=== PATIENT | female | born 1995 | race Caucasian/White ===

== ENCOUNTER 2018-12-10 09:14 | Inpatient (IN) | payer OTHER ==
[~2018-12-10] VITALS: Ht 167.6 cm; Wt 110.4 kg
[2018-12-10 09:25] VITALS: Ht 167.6 cm; Wt 110.4 kg
[2018-12-10] MEDS ORDERED: CEFAZOLIN 2 GM/50 ML (PMX) 50 ML IVPB SCH (09:30)
[2018-12-10] MEDS ORDERED: MISOPROSTOL 200 MCG TAB PR PRN ×2 (09:30→13:00)
[2018-12-10] MEDS ORDERED: OXYTOCIN 30 UNITS/LR 500 ML IV SCH ×2 (09:30→12:34)
[2018-12-10] MEDS ORDERED: CARBOPROST 250 MCG INJ IM PRN ×2 (09:30→13:00)
[2018-12-10] MEDS ORDERED: METHYLERGONOVINE 0.2 MG INJ IM PRN ×2 (09:30→13:00)
[2018-12-10] MEDS ORDERED: OXYTOCIN 30 UNITS/LR 500 ML IV PRN ×2 (09:30→13:00)
[2018-12-10] MEDS: LACTATED RINGER'S 1,000 ML IV SCH (10:18)
[2018-12-10] MEDS ORDERED: CITRIC ACID/NA CITRATE 30 ML CUP PO ONE (10:30)
--- NOTE | 2018-12-10 10:39 | PREAC ---
Date/Time of Note Date/Time of Note DATE: 12/10/18 TIME: 10:38 Anesthesia Eval and Record Evaluation Time Pre-Procedure Interview DATE: 12/10/18 TIME: 10:38 Age 23 Sex female NPO: 8 hrs Preoperative diagnosis repeat c section Planned procedure c section Past Medical History Past Medical History: Includes GI: Obesity Surgery & Anesthesia Issues No known issue Meds Anticoagulation: No Beta Clair within 24 hr: No Reason Beta Clair not given: Pt. not on B-Clair Current Medications Lactated Ringer's 1,000 ml @ 125 mls/hr Q8H IV Last administered on 12/10/18at 10:18; Admin Dose 125 MLS/HR; Start 12/10/18 at 09:15 Cefazolin Sodium/ Dextrose 50 ml @ 100 mls/hr ONCE IVPB ; Start 12/10/18 at 09:30 Oxytocin/Lactated Ringer's 500 ml @ 125 mls/hr POST IV ; Start 12/10/18 at 09:30 Oxytocin/Lactated Ringer's 500 ml @ 0 mls/hr ONCE PRN IV .VAGINAL BLEEDING; Start 12/10/18 at 09:30 Methylergonovine Maleate (Methergine) 0.2 mg ONCE PRN IM .VAGINAL BLEEDING; Start 12/10/18 at 09:30 Carboprost Tromethamine (Hemabate) 250 mcg ONCE PRN IM .VAGINAL BLEEDING; Start 12/10/18 at 09:30 Misoprostol (Cytotec) 1,000 mcg ONCE PRN [place] .VAGINAL BLEEDING; Start 12/10/18 at 09:30 Meds reviewed: Yes Allergies Coded Allergies: No Known Allergy (Unverified , 12/10/18) Allergies Reviewed: Yes Labs/Studies Labs Reviewed: Reviewed by anesthesiologist Result Diagram: 12/10/18 1000 Laboratory Tests 12/10/18 10:00 test: Positive Studies: ECG (n/a), CXR (n.a) Pre-procedure Exam Airway: Adequate mouth opening Mallampati: Mallampati I Teeth: Normal Lung: Normal Heart: Normal ASA Physical Status ASA physical status: 2 Emergency: None Planned Anesthetic Neuraxial: Spinal Planned Pain Management Sub-arachniod narcotics Pre-operative Attestations Prior to commencing anesthesia and surgery, the patient was re-evaluated, there was verification of: *The patient's identity *The results of appropriate recent lab work and preoperative vital signs *The above evaluation not changing prior to induction *Anesthetic plan, risk benefits, alternative and complications discussed with patient/family; questions answered; patient/family understands, accepts and wishes to proceed. JUAN CARLOS COTA MD Dec 10, 2018 10:39
--- NOTE | 2018-12-10 11:12 | PREOPHP ---
DATE OF ADMISSION: 12/10/2018 HISTORY OF PRESENT ILLNESS: Ms. Rosie Luke is also 23-year-old 2, para 1, EDC 12/13/19 19 intrauterine at 39 weeks and 5 days gestational age, admitted today for elective repeat delivery. She denies any contractions, vaginal bleeding, or discharge. She reports good fe tremaine movement. She had limited care, late entry at approximately 39 weeks' gestational age. PAST MEDICAL HISTORY: None. MEDICATIONS: vitamins. PAST SURGICAL HISTORY: x1 previous section. OBSTETRIC HISTORY: x1 previous section. GYNECOLOGIC HISTORY: Age 10, regular 3 to 4 days. Denies any sexually transmitted infections. Sexu ally active with 1 partner. SOCIAL HISTORY: Denies any smoking, drugs or alcohol. FAMILY HISTORY: None. REVIEW OF SYSTEMS: All within normal except history of present illness. PHYSICAL EXAMINATION: HEENT: Within normal. LUNGS: CTA bilateral. CARDIOVASCULAR: S1, S2, regular rhythm. ABDOMEN: Obese, gravid, no CVA tenderness. EXTREMITIES: Negative edema. No calf tenderness. PELVIC: Vaginal exam deferred. heart tracing category 1. Hettinger: No contractions. ASSESSMENT: Intrauterine at 39 weeks and 5 days gestational age with limited care , previous x1, desires elective repeat delivery, declines vaginal after cesa rean. PLAN: Consent for repeat delivery. Risks, benefits and alternatives explained. All questi ons were answered. Dictated By: NILES SHEARER/LUCITA Conf#: [id number] DID#: [id number]
[2018-12-10] MEDS ORDERED: ONDANSETRON 4 MG INJ ONE (11:24)
[2018-12-10] MEDS ORDERED: METOCLOPRAMIDE 10 MG INJ ONE (11:24)
[2018-12-10] MEDS ORDERED: morphine SULFATE/PF (10 MG/10 ML) INJ ONE (11:24)
[2018-12-10] MEDS ORDERED: KETOROLAC 30 MG INJ ONE (11:24)
[2018-12-10] MEDS ORDERED: EPHEDrine 25 MG/5 ML SYG ONE (11:34)
[2018-12-10] MEDS ORDERED: OXYTOCIN 30 UNITS/LR 500 ML IV ONE (12:22)
--- NOTE | 2018-12-10 12:30 | OPPN ---
Date/Time of Note Date/Time of Note DATE: 12/10/18 TIME: 12:24 Operative Report Planned Procedure Procedure date Dec 10, 2018 Procedure(s) repeat low transverse CD Performed by see signature line Field Agent: MEGHNA ELKINS MD 2nd Field Agent none Anesthesiologist: JUAN CARLOS COTA MD Pre-procedure diagnosis Intrauterine at 39 weeks and 5 days gestational age with limited care, previous x1, desires elective repeat delivery, declines vaginal after [id number] Anesthesia Type: Swvrt5t spinal Post-Procedure Post-procedure diagnosis same Findings a viable female 8/9 weight 3,345 grams. normal uterus tubes ovaries Estimated Blood Loss: 500 - 600 mls Specimen(s) none Grafts/Implant(s) none Complication(s) none NILES SCHWARZ MD Dec 10, 2018 12:30
[2018-12-10] MEDS ORDERED: NACL 0.9% 3 ML SYG IV SCH (13:00)
[2018-12-10] MEDS ORDERED: LANOLIN HPA 1 PKT TOP PRN (13:00)
[2018-12-10] MEDS ORDERED: DIPHENHYDRAMINE 50 MG INJ IV PRN ×2 (13:00)
[2018-12-10] MEDS ORDERED: ONDANSETRON 4 MG INJ IV PRN ×2 (13:00)
[2018-12-10] MEDS: CEFAZOLIN 2 GM/50 ML (PMX) 50 ML IVPB SCH ×2 (13:00→21:15)
[2018-12-10] MEDS ORDERED: morphine 2 MG INJ IV PRN ×6 (13:00)
[2018-12-10] MEDS ORDERED: NALOXONE (0.4 MG/ML) INJ IV PRN (13:00)
[2018-12-10] MEDS ORDERED: KETOROLAC 30 MG INJ IV PRN ×2 (13:00)
[2018-12-10 15:00] VITALS: BP 117/71; PULSE 71; RESP 16
[2018-12-10 15:30] VITALS: BP 116/58; PULSE 68; RESP 18
[2018-12-10 16:30] VITALS: BP 105/56; PULSE 77; RESP 19
--- NOTE | 2018-12-10 16:49 | OPR ---
DATE OF OPERATION: 12/10/2018 PREOPERATIVE DIAGNOSIS: Intrauterine at 39 weeks and 5 days gestational age with limited p renatal care, previous section x1, desires elective repeat delivery. Declined vagi nal after . POSTOPERATIVE DIAGNOSES: Intrauterine at 39 weeks and 5 days gestational age with limited care, previous section x1, desires elective repeat delivery. Declined vag inal after . OPERATION PERFORMED: Repeat low transverse delivery. SURGEON: Srikanth Thompson MD SALES PORTER: Berenice Saleem MD ANESTHESIA: Spinal. COMPLICATIONS: None. ESTIMATED BLOOD LOSS: 500 mL. FINDINGS: A viable female, 8 and 9 respectively at 1 and 5 minutes, weight 3345 grams. Normal uterus, tubes and ovaries. DESCRIPTION OF PROCEDURE: After explaining the risks, benefits and alternatives and consent signed i n chart, the patient was taken to the operating room where spinal anesthesia was found to be adequate . She was then prepared and draped in normal sterile fashion in dorsal supine position with a leftwa rd tilt. A Pfannenstiel skin incision was then made with a scalpel and carried to the underlying layer of fas von. The fascia was incised in the midline and incision was extended laterally with Page scissors. The superior aspect of the fascial incision was grasped with curved clamps, elevated and the underlyi ng rectus muscles dissected off bluntly. Attention was then turned to at the inferior aspect of inci lida, where in similar fashion was grasped, tented up with curved clamps and the rectus muscles disse cted off bluntly. The rectus muscles were then in the midline, peritoneum identified, tent ed up, and entered sharply with Metzenbaum scissors. The peritoneal incision was extended superiorly with good visualization of the bladder. The bladder blade was inserted and the lower uterine segmen t incised in transverse fashion with a scalpel. The uterine incision was extended laterally. The bl adder blade was removed and the infant's head delivered atraumatically. The nose and mouth were suct ioned and cord clamped and cut. The infant was handed off to waiting cardiac exercise physiologist. The placenta was then removed. The uterus extracted and cleared of all clots and debris. The uterine incision was r epaired with 1-0 chromic in a running locked fashion. A second layer of same suture was used for imb rication and obtained excellent hemostasis. The uterus was returned to the abdomen. The gutters were cleared of all clots. The peritoneum and rectus abdominis were reapproximated with 3-0 Vicryl in interrupted fashion. The fascia was reapproximated with 0 Vicryl in a running fashion. The subcutaneous tissue was reapproximated with 2-0 plain gut in a running fashion. The skin was c losed with absorbable bhavana. The patient tolerated the procedure well. Sponge, lap and needle cou nts were correct. The patient was taken to the recovery room in stable condition. Dictated By: SRIKANTH SHEARER/LUCITA Conf#: [id number] DID#: [id number]
[2018-12-10 20:05] VITALS: BP 114/64; PULSE 75
[2018-12-11 00:05] VITALS: BP 103/52; PULSE 76
[2018-12-11] MEDS: LACTATED RINGER'S 1,000 ML IV SCH (02:50)
[2018-12-11 04:05] VITALS: BP 96/50; PULSE 74
[2018-12-11] MEDS: CEFAZOLIN 2 GM/50 ML (PMX) 50 ML IVPB SCH (05:12)
--- NOTE | 2018-12-11 08:15 | PAC ---
Date/Time of Note Date/Time of Note DATE: 12/11/18 TIME: 08:15 Post-Anesthesia Notes Post-Anesthesia Note Last documented vital signs Vital Signs Date Temp Pulse Resp B/P (MAP) Pulse Ox O2 O2 Flow FiO2 Time Delivery Rate 12/11/18 98.3 74 18 96/50 (65) 98 Room Air 04:05 12/11/18 98 00:05 12/10/18 16:30 Activity: WNL Respiratory function: WNL Cardiovascular function: WNL Mental status: Baseline Pain reasonably controlled: Yes Hydration appropriate: Yes Nausea/Vomiting absent: No JUAN CARLOS COTA MD Dec 11, 2018 08:15
--- NOTE | 2018-12-11 08:15 | OPPN ---
Date/Time of Note Date/Time of Note DATE: 12/11/18 TIME: 08:15 Anesthesia Follow up Anesthesia Follow up Last documented vital signs Vital Signs Date Temp Pulse Resp B/P (MAP) Pulse Ox O2 O2 Flow FiO2 Time Delivery Rate 12/11/18 98.3 74 96/50 (65) Room Air 04:05 12/11/18 98 00:05 12/10/18 16:30 Respiratory function: WNL Cardiovascular function: WNL Comments A 23 year s/pspinal duramorph for post op pain, post op day #1 is fine, no headache, pain, N/V, itching, neural deficit. JUAN CARLOS COTA MD Dec 11, 2018 08:15
[2018-12-11 08:30] VITALS: BP 109/56; PULSE 74; RESP 18
[2018-12-11] MEDS: IBUPROFEN 800 MG TAB PO SCH ×2 (12:27→21:45)
[2018-12-11] MEDS ORDERED: OXYCODONE/ACETAMINOPHEN (5/325) TAB PO PRN ×2 (13:00)
[2018-12-11] MEDS ORDERED: CEFAZOLIN 2 GM/50 ML (PMX) 50 ML IVPB SCH (13:00)
[2018-12-11 16:25] VITALS: BP 122/80; PULSE 85; RESP 20
--- NOTE | 2018-12-11 18:32 | QN ---
Documentation Comment progress note pod 1 patient seen and evaluated no complaints vs stable afebrile ab dressing clean/dry no distention extremity no edema no calf tenderness a sp cd pod 1 stable afebrile p/ iron supplement encourage ambulation NILES SCHWARZ MD Dec 11, 2018 18:32
[2018-12-11 19:30] VITALS: BP 121/58; PULSE 87; RESP 19
[2018-12-11] MEDS: FERROUS SULFATE (EC) 325 MG TAB PO SCH (20:54)
[2018-12-12 04:00] VITALS: BP 99/71; PULSE 71; PULSE 75
[2018-12-12] MEDS: IBUPROFEN 800 MG TAB PO SCH ×3 (05:25→21:53)
[2018-12-12 07:45] VITALS: BP 121/62; PULSE 75; RESP 18
[2018-12-12] MEDS: FERROUS SULFATE (EC) 325 MG TAB PO SCH ×2 (08:55→21:53)
[2018-12-12 16:01] VITALS: BP 127/78; PULSE 72; RESP 18
--- NOTE | 2018-12-12 19:53 | QN ---
Documentation Comment progress note pod 2 patient seen and evaluated no complaints vs stable afebrile ab c/d/i no distention extremity no edema no calf tenderness a sp cd pod 2 stable afebrile p/ discharge home tomorrow NILES SCHWARZ MD Dec 12, 2018 19:53
--- NOTE | 2018-12-12 19:55 | PD.PPDC ---
[employer] Discharge Instruction Condition [id number] Patient Condition: Mygyg5w Fair Diet Cehvm2Hu Diet: Ehgom6n Resume Regular Diet Activity/Restrictions [id number] Activity: Qeqda5u Normal Activity May Shower Ovtqp7Aa Restrictions: Biwzg7b No Exercising No Lifting No Driving No Sexual Activity Nothing in the Vagina No [place] No Tampons, douche Follow-up Follow-up with Physician: 2, Week/Weeks Return to clinic for Nsmrz7Ao HEALTH CARE ANALYST Instructions: Tcnkh1q Fever greater than 101 Chills Worsening abdominal pain Excessive Vaginal Bleeding More than 2 pads per hour Unable to tolerate diet Tbepp2Sy OB Instructions: Qyfnr7q Breast Tenderness Depression Blurried Vision Headache Ohzwz7Ap Surgical Instructions: Juyvw4x Incisional Drainage Incisional Redness NILES SCHWARZ MD Dec 12, 2018 19:55
[2018-12-12 20:00] VITALS: BP 122/78; PULSE 79; RESP 18
--- NOTE | 2018-12-13 03:31 | DS ---
DATE OF ADMISSION: 12/10/2018 DATE OF DISCHARGE: 12/13/2018 DISCHARGE DATE: 12/13/2018 PRIMARY DIAGNOSIS: Intrauterine at 39 weeks gestational age with a limited care, previous x1, desires elective repeat delivery, declined . PROCEDURE: Repeat low transverse delivery. CONDITION ON DISCHARGE: Stable. ACTIVITY: Nothing per vagina, no lifting x6 weeks. DIET: Regular. MEDICATIONS ON DISCHARGE: 1. Motrin. 2. Iron. 3. Colace. DISCHARGE SUMMARY: Ms. Rosie Luke underwent a repeat low transverse delivery on 12/10. She had a viable female, 8 and 9 respectively at 1 and 5 minutes, weight 3345 grams. S he had an uneventful postop day 1 and 2. She was discharged on postop day 3. Her incision is clean, dry, intact. She is ambulating, tolerating diet, positive flatulence, positive bowel movement. She will follow up in the clinic in 2 weeks for /postop care. Dictated By: NILES SHEARER/LUCITA Conf#: [id number] DID#: [id number]
[2018-12-13 04:04] VITALS: BP 128/63; PULSE 79; RESP 18
[2018-12-13] MEDS: IBUPROFEN 800 MG TAB PO SCH ×2 (05:33→14:45)
[2018-12-13 09:10] VITALS: BP 117/55; PULSE 70; RESP 19
[2018-12-13] MEDS: FERROUS SULFATE (EC) 325 MG TAB PO SCH (10:02)
[2018-12-13] MEDS ORDERED: DIPHTH/TET/ACEL PERTUSS (ADULT) 0.5 ML VIAL IM* ONE (12:30)
== END 2018-12-13 16:26 | disposition home or self-care (01) | DRG 788 ==
LOC: L-D 09:14 → PP1 15:00 → MS1 12-12 10:10
PROVIDERS: ADMIT Obstetrics & Gynecology; ATTEND Obstetrics & Gynecology
PROC: 10D00Z1 Extraction of Products of Conception, Low, Open Approach (ICD-10-PCS; principal; 2018-12-10 12:30)
DX: O34.211 Maternal care for low transverse scar from previous cesarean delivery (principal); O99.214 Obesity complicating childbirth; E66.9 Obesity, unspecified; G89.18 Other acute postprocedural pain; Z3A.39 39 weeks gestation of pregnancy; Z37.0 Single live birth; Z23 Encounter for immunization
CPT/HCPCS: 85025; 85610; 85730; 86592; 86850; 86900; 86901; 87340; 90715; 99464; J0690; J1885; J2210; J2274; J2405; J2590; J2765; J7120